=== PATIENT | male | born 1990 | race Caucasian/White ===

== ENCOUNTER 2024-09-11 20:34 | Emergency (ER) | payer BC, SELFPAY ==
[2024-09-11 20:36] VITALS: BP 162/102
--- NOTE | 2024-09-11 21:02 | ED.MUSCINJ ---
HPI-Injury
General
Chief Complaint: Musculo-Skeletal Complaint
Source: patient
Exam Limitations: none
Time Seen by Provider: 09/11/24 20:49
History of Present Illness-Injury
Initial Injury comments:
34 year old male right hand dominant male presents with left shoulder pain after falling while snowboarding today. He did not hit his head. No other complaints at this time
Phy Exam
Physical Exam
Physical Exam:
General: Well-appearing male no acute distress
Musculoskeletal exam: The patient is tender over the left superior shoulder and clavicle area. The spine is nontender lateral shoulder is nontender nor is the elbow.
Skin is intact
Injury Course
Orders/Labs/Results
Orders:
Orders
09/11/24 20:42
CR Clavicle - Left Complete Urgent
Comment:
Reason For Exam: fall/pain
CR Shoulder, Trauma - Left Urgent
Comment:
Reason For Exam: fall/pain
MDM/Problems Addressed
Differential Diagnosis Includes:
Left shoulder pain after fall while snowboarding. Consider contusion versus fracture versus dislocation
I personally visualized x-rays of the left clavicle and shoulder which demonstrate midshaft clavicle fracture that is comminuted in nature and this
Patient placed in a sling will be advised follow-up with orthopedics.
*Critical Care Note
Total Time (30-74mins, 75-104mins- exclusive of procedures): Not Applicable
ED Attending Note
-
Portions of this chart may have been created with voice recognition software.� Occasional wrong word or��sound alike� substitutions may have occurred due to the inherent limitations of voice recognition software.
Discharge Plan
Departure
Patient Disposition: Home (Routine Discharge)
Date of Disposition: 09/11/24
Time of Disposition: 21:07
Patient with high blood pressure during this ER visit?: No
Discharge Problem:
Clavicle fracture
Instructions: Muscle and Bone Pain (DC)
Referrals:
Telly Weathers MD [Active] -
Stand Alone Forms: Return to Work
Activity Restrictions/Additional Instructions:
Use a sling for support. Continue with Tylenol or ibuprofen. Follow-up with orthopedics for further evaluation
Interventions
Interventions:
*General Assessment Last Done: 09/11/24 20:41
ED- Fall Risk Assessment Last Done: 09/11/24 20:41
*ED COVID-19 Vaccine History Last Done: 09/11/24 20:41
Discharge Date and Time
Print Language: ZAMBIAN
== END 2024-09-11 21:39 | disposition home or self-care (01) ==
LOC: EMR 20:34
PROVIDERS: EMERGENCY PHYSICIAN Emergency Medicine
DX: S42.022A Displaced fracture of shaft of left clavicle, initial encounter for closed fracture (principal); V00.311A Fall from snowboard, initial encounter
CPT/HCPCS: 99283; 73000; 73030

== ENCOUNTER 2024-12-23 13:00 | Outpatient (RCR) | payer BC, SELFPAY | END 2024-12-23 23:59 | disposition home or self-care (01) | LOC: RPT 13:00 | PROVIDERS: ATTENDING PHYSICIAN Physician Assistant | DX: S42.025D Nondisplaced fracture of shaft of left clavicle, subsequent encounter for fracture with routine healing (principal); Z73.6 Limitation of activities due to disability; M62.81 Muscle weakness (generalized); M25.512 Pain in left shoulder; X58.XXXD Exposure to other specified factors, subsequent encounter; Y93.23 Activity, snow (alpine) (downhill) skiing, snowboarding, sledding, tobogganing and snow tubing | CPT/HCPCS: 97010; 97110; 97112; 97140; 97162 ==

== ENCOUNTER 2025-01-28 13:31 | Outpatient (RCR) | payer BC, SELFPAY | END 2025-01-28 23:59 | disposition home or self-care (01) | LOC: RPT 13:31 | PROVIDERS: ATTENDING PHYSICIAN Physician Assistant | DX: S42.025D Nondisplaced fracture of shaft of left clavicle, subsequent encounter for fracture with routine healing (principal); Z73.6 Limitation of activities due to disability; M62.81 Muscle weakness (generalized); M25.512 Pain in left shoulder; X58.XXXD Exposure to other specified factors, subsequent encounter; Y93.23 Activity, snow (alpine) (downhill) skiing, snowboarding, sledding, tobogganing and snow tubing | CPT/HCPCS: 97010; 97110; 97112; 97140 ==